=== PATIENT | male | born 1980 | race Caucasian/White ===

== ENCOUNTER 2016-09-27 10:13 | Emergency (ER) | payer MEDICAID ==
[2016-09-27] MEDS ORDERED: NS 1,000 ML IV ONE (10:35)
[2016-09-27 10:43] VITALS: RESP 18; TEMP 98
[2016-09-27] MEDS ORDERED: ONDANSETRON 4 MG/2 ML VIAL IVP ONE (10:46)
--- NOTE | 2016-09-27 10:53 | UCPHY ---
H & P Patient Type: Established Chief Complaint Nursing Narrative: c/o ULQ abd pain with N/V since late last pm - Time Seen by Provider: 09/27/16 10:26 HPI/ROS: This patient presents with a chief complaint of epigastric pain, nausea, vomiting and 3 episodes of diarrhea which began approximately 4 hours prior to my evaluation. The patient was feeling fine when he went to bed last night and then the pain awakened him at approximately 7:00 a.m. and was associated with severe nausea followed by approximately 10 episodes of vomiting. Either the diarrhea or vomit contained any blood. The pain in his abdomen does not radiate to his back any denies any relationship of the pain to movement, position, breathing or swallowing. He denies any URI symptoms and denies any urinary tract symptoms. The patient has been seen multiple times in the past for similar symptoms but since he had his gallbladder removed in June 2016 this problem as recurred only once which was in July of 2016. REVIEW OF SYSTEMS: Constitutional: No fever, chills, lightheadedness Eyes: No complaints ENT: No sore throat, congestion or ear pain Respiratory: No cough, no shortness of breath, Cardiac: No chest pain Gastrointestinal: See above Genitourinary: Denies symptoms Musculoskeletal: No myalgias Skin: No rash Neurological: No headache Source: Patient, RN notes reviewed, Old records Exam Limitations: No limitations - Personal History Current Tetanus Diphtheria and Acellular Pertussis (TDAP): Yes Tetanus Vaccine Date: within 10 years - Medical/Surgical History Hx Asthma: No Hx Chronic Respiratory Disease: No Hx Diabetes: No Hx Cardiac Disease: No Hx Renal Disease: No Hx Cirrhosis: No Hx Alcoholism: No Hx HIV/AIDS: No Hx Splenectomy or Spleen Trauma: No Other PMH: PTSD, schizoaffective, personality disorder - Family History Significant Family History: No pertinent family hx - Social History Smoking Status: Current every day smoker - Physical Exam Exam: GENERAL: Well-appearing, well-nourished and in no acute distress. HEAD: Atraumatic, normocephalic. EYES: Pupils equal round and reactive to light, extraocular movements intact, sclera anicteric, conjunctiva are normal. ENT: nares patent, oropharynx clear without exudates. Moist mucous membranes. NECK: Normal range of motion, supple without lymphadenopathy or JVD. LUNGS: Breath sounds clear to auscultation bilaterally and equal. No wheezes rales or rhonchi. HEART: Regular rate and rhythm without murmurs, rubs or gallops. ABDOMEN: Soft, mild epigastric tenderness, normoactive bowel sounds. No guarding, no rebound. No masses appreciated. EXTREMITIES: Normal range of motion, NEUROLOGICAL: Cranial nerves II through XII grossly intact. Normal speech, normal gait. PSYCH: Normal mood, normal affect. SKIN: Warm, dry, normal turgor, no visible rashes or lesions. Back: No CVA or other tenderness Constitutional: Initial Vital Signs Temperature (C) 36.6 C 09/27/16 10:27 Heart Rate 75 09/27/16 10:27 Respiratory Rate 18 09/27/16 10:27 Blood Pressure 132/79 H 09/27/16 10:27 O2 Sat (%) 96 09/27/16 10:27 O2 Delivery Mode Nasal Cannula O2 (L/minute) 2 Allergies/Adverse Reactions: lithium Allergy (Intermediate, Verified 08/06/16 12:44) Other-Enter Comments Home Medications: Medication Instructions Recorded DIAZEPAM 08/06/16 Latuda 08/06/16 Ondansetron Odt [Zofran Odt] 4 - 8 mg PO Q4PRN PRN #4 tab 08/06/16 PARoxetine CR 08/06/16 Prazosin HCl 08/06/16 Seroquel 08/06/16 Wellbutrin Sr 08/06/16 Hydrocodone/APAP 5/325 [[place] 5 mg PO Q4-6PRN PRN #10 tab 09/27/16 5/325 (*)] Ondansetron Odt [Zofran Odt] 4 mg PO Q4PRN PRN #4 tab 09/27/16 Medical Decision Making ED Course/Re-evaluation: An IV was started and the patient was hydrated with normal saline. He was given 4 mg of Zofran and 4 mg of morphine intravenously. On discharge the patient about denied abdominal pain or nausea. He had no episodes of vomiting or diarrhea while in the department. Differential Diagnosis: I find nothing that would suggest that this patient's symptoms are related to a serious medical problem in spite of the elevated white count. - Data Points Laboratory Results: Laboratory Results 09/27/16 10:37 09/27/16 10:37 09/27/16 10:37 WBC 16.69 H 10^3/uL (3.80-9.50) RBC 5.33 10^6/uL (4.40-6.38) Hgb 16.2 g/dL (13.7-17.5) Hct 48.6 % (40.0-51.0) MCV 91.2 fL (81.5-99.8) MCH 30.4 pg (27.9-34.1) MCHC 33.3 g/dL (32.4-36.7) RDW 13.5 % (11.5-15.2) Plt Count 284 10^3/uL (150-400) MPV 9.6 fL (8.7-11.7) Neut % (Auto) 86.9 H % (39.3-74.2) Lymph % (Auto) 7.9 L % (15.0-45.0) [place] % (Auto) 3.6 L % (4.5-13.0) Eos % (Auto) 0.7 % (0.6-7.6) Baso % (Auto) 0.3 % (0.3-1.7) Nucleat RBC Rel Count 0.0 % (0.0-0.2) Absolute Neuts (auto) 14.51 H 10^3/uL (1.70-6.50) Absolute Lymphs (auto) 1.32 10^3/uL (1.00-3.00) Absolute Monos (auto) 0.60 10^3/uL (0.30-0.80) Absolute Eos (auto) 0.11 10^3/uL (0.03-0.40) Absolute Basos (auto) 0.05 10^3/uL (0.02-0.10) Absolute Nucleated RBC 0.00 10^3/uL (0-0.01) Immature Gran % 0.6 % (0.0-1.1) Immature Gran # 0.10 10^3/uL (0.00-0.10) Sodium 143 mEq/L (134-144) Potassium 4.5 mEq/L (3.5-5.2) Chloride 106 mEq/L (97-110) Carbon Dioxide 24 mEq/l (22-31) Anion Gap 13 mEq/L (8-16) BUN 15 mg/dL (7-23) Creatinine 0.9 mg/dL (0.7-1.3) Estimated GFR > 60 Glucose 100 mg/dL (70-100) Calcium 9.4 mg/dL (8.5-10.4) Total Bilirubin 0.5 mg/dL (0.1-1.4) AST 20 IU/L (17-59) ALT 31 IU/L (21-72) Alkaline Phosphatase 70 IU/L (38-126) Total Protein 7.0 g/dL (6.3-8.2) Albumin 4.2 g/dL (3.5-5.0) Lipase 79.0 IU/L (23-300) Medications Given: Discontinued Medications Morphine Sulfate (Morphine) 4 mg IVP EDNOW ONE Stop: 09/27/16 10:48 Last Admin: 09/27/16 11:12 Dose: 4 mg Ondansetron HCl (Zofran) 4 mg IVP EDNOW ONE Stop: 09/27/16 10:47 Last Admin: 09/27/16 11:12 Dose: 4 mg Departure - Departure Disposition: Home, Routine, Self-Care Clinical Impression: Gastroenteritis Condition: Good Instructions: Dehydration (ED), Gastroenteritis (ED) Additional Instructions: If symptoms recur you should return. Keep yourself well hydrated and do not eat any solids for the next 6-8 hours. If your symptoms have not completely resolved by tomorrow morning you should return. Limit your activities for the remainder of the day. Prescriptions: Hydrocodone/APAP 5/325 [[place] 5/325 (*)] 5 mg PO Q4-6PRN PRN #10 tab PRN Reason: pain Ondansetron Odt [Zofran Odt] 4 mg PO Q4PRN PRN #4 tab PRN Reason: For Nausea & Vomiting - PQRS PQRS Measurement: Not applicable
[2016-09-27 10:56] LABS: % IMMATURE GRANULYOCYTES 0.6 % (0.0-1.1); ADD DIFF? NO; ADD MORPH? NO; ADD SCAN? NO; ATYPICAL LYMPHOCYTE FLAG 0 (0-99); FRAGMENT RBC FLAG 0 (0-99); HEMATOCRIT 48.6 % (40.0-51.0); HEMOGLOBIN 16.2 g/dL (13.7-17.5); LEFT SHIFT FLG 0 (0-99); LIPEMIA HEMOLYSIS FLAG 80 (0-99); MEAN CELL HEMOGLOBIN 30.4 pg (27.9-34.1); MEAN CELL HEMOGLOBIN CONCENTR. 33.3 g/dL (32.4-36.7); MEAN CELL VOLUME 91.2 fL (81.5-99.8); MEAN PLATELET VOLUME 9.6 fL (8.7-11.7); PLATELET CLUMPS FLAG 30 (0-99); PLATELET COUNT 284 10^3/uL (150-400); RED BLOOD CELL COUNT 5.33 10^6/uL (4.40-6.38); RED CELL DISTRIBUTION WIDTH 13.5 % (11.5-15.2)
[2016-09-27 11:03] LABS: ALANINE AMINOTRANSFERASE 31 IU/L (21-72); ALBUMIN 4.2 g/dL (3.5-5.0); ALKALINE PHOSPHATASE 70 IU/L (38-126); ANION GAP 13 mEq/L (8-16); ASPARTATE AMINOTRANSFERASE 20 IU/L (17-59); BILIRUBIN,TOTAL 0.5 mg/dL (0.1-1.4); CALCIUM 9.4 mg/dL (8.5-10.4); CARBON DIOXIDE 24 mEq/l (22-31); CHLORIDE 106 mEq/L (97-110); CREATININE 0.9 mg/dL (0.7-1.3); GLOMERULAR FILTRATION RATE > 60; GLUCOSE 100 mg/dL (70-100); POTASSIUM 4.5 mEq/L (3.5-5.2); SODIUM 143 mEq/L (134-144)
[2016-09-27 12:29] VITALS: BP 124/62; PULSE 78; O2SAT 95
== END 2016-09-27 12:25 | disposition home or self-care (01) ==
LOC: CED 10:13
DX: K52.9 Noninfective gastroenteritis and colitis, unspecified (principal); E86.0 Dehydration; Z72.0 Tobacco use; F25.9 Schizoaffective disorder, unspecified; F43.10 Post-traumatic stress disorder, unspecified
CPT/HCPCS: 80053-PO; 83690-PO; 85025-PO; 96361-PO; 96374-PO; 96375-PO; 99215-PO; G0463-PO; J2405

== ENCOUNTER 2016-10-31 16:07 | Emergency (ER) | payer MEDICAID ==
[2016-10-31] MEDS ORDERED: ONDANSETRON 4 MG/2 ML VIAL IVP ONE (17:13)
[2016-10-31] MEDS ORDERED: NS 1,000 ML IV ONE ×2 (17:13→18:17)
[2016-10-31] MEDS ORDERED: FAMOTIDINE 20 MG/NACL 50 ML IV ONE (17:15)
[2016-10-31 17:18] LABS: % IMMATURE GRANULYOCYTES 0.4 % (0.0-1.1); ABSOLUTE IMMATURE GRANULOCYTES 0.05 10^3/uL (0.00-0.10); ADD DIFF? NO; ADD MORPH? NO; ADD SCAN? NO; ATYPICAL LYMPHOCYTE FLAG 0 (0-99); FRAGMENT RBC FLAG 0 (0-99); HEMATOCRIT 43.2 % (40.0-51.0); HEMOGLOBIN 14.5 g/dL (13.7-17.5); LEFT SHIFT FLG 0 (0-99); LIPEMIA HEMOLYSIS FLAG 80 (0-99); MEAN CELL HEMOGLOBIN 30.6 pg (27.9-34.1); MEAN CELL HEMOGLOBIN CONCENTR. 33.6 g/dL (32.4-36.7); MEAN CELL VOLUME 91.1 fL (81.5-99.8); MEAN PLATELET VOLUME 10.2 fL (8.7-11.7); PLATELET CLUMPS FLAG 0 (0-99); PLATELET COUNT 240 10^3/uL (150-400); RED BLOOD CELL COUNT 4.74 10^6/uL (4.40-6.38); RED CELL DISTRIBUTION WIDTH 13.8 % (11.5-15.2)
[2016-10-31 17:25] LABS: ALANINE AMINOTRANSFERASE 32 IU/L (21-72); ALBUMIN 3.8 g/dL (3.5-5.0); ALKALINE PHOSPHATASE 52 IU/L (38-126); ANION GAP 10 mEq/L (8-16); ASPARTATE AMINOTRANSFERASE 22 IU/L (17-59); BILIRUBIN,TOTAL 0.5 mg/dL (0.1-1.4); CALCIUM 8.9 mg/dL (8.5-10.4); CARBON DIOXIDE 24 mEq/l (22-31); CHLORIDE 107 mEq/L (97-110); GLOMERULAR FILTRATION RATE > 60; GLUCOSE 86 mg/dL (70-100); POTASSIUM 3.8 mEq/L (3.5-5.2); SODIUM 141 mEq/L (134-144); TOTAL PROTEIN 6.6 g/dL (6.3-8.2)
[2016-10-31] MEDS ORDERED: KETOROLAC 30 MG/1 ML SDV IVP ONE (18:17)
[2016-10-31] MEDS ORDERED: HYDROCOD/APAP 5/325 PREPACK#6 BTL TAKEHOME ONE (19:21)
[2016-10-31] MEDS ORDERED: ONDANSETRON 4MG PREPACK#2 BTL TAKEHOME ONE (19:21)
--- NOTE | 2016-10-31 19:22 | UCPHY ---
H & P Patient Type: Established Chief Complaint Nursing Narrative: sharp epigsastric pain since 3pm. Vomitting blood. Lethargic, disoriented, diaphoretic. Time Seen by Provider: 10/31/16 16:45 HPI/ROS: 36-year-old male presents complaining of nausea vomiting and left upper quadrant pain that began at about 3 this afternoon. He has had several prior visits with similar presentations. He had his gallbladder out in June 2016. Denies any unusual food intake or unusual exposures today He states he only uses cannabis approximately once a week Review of systems General no fever no chills no weakness HEENT no eye pain no eye discharge. No eye redness, no sore throat Respiratory no cough, no shortness of breath Cardiac no chest pain, no peripheral edema GI positive abdominal pain, no diarrhea, no constipation, with positive nausea positive vomiting no flank pain, no hematuria, no dysuria Musculoskeletal no myalgias, no joint pain Heme no easy bruising, no easy bleeding Endo no polyuria, no polydipsia Skin no rashes, no pruritus Neuro no syncope, no dizziness, no headaches Psych is no suicidal ideation, no homicidal ideation Source: Patient Exam Limitations: No limitations - Personal History Current Tetanus/Diphtheria Vaccine: Yes Tetanus Vaccine Date: within 10 years - Medical/Surgical History Hx Asthma: No Hx Chronic Respiratory Disease: No Hx Diabetes: No Hx Cardiac Disease: No Hx Renal Disease: No Hx Cirrhosis: No Hx Alcoholism: No Hx HIV/AIDS: No Hx Splenectomy or Spleen Trauma: No Other PMH: gall bladder removed in May. 4 episodes of abdominal pain since then. - Family History Significant Family History: No pertinent family hx - Social History Smoking Status: Current every day smoker Alcohol Use: Occasionally Drug Use: Marijuana - Physical Exam Exam: 36-year-old male alert and oriented moderate distress secondary to upper abdominal pain with nausea, however nontoxic appearance, afebrile HEENT atraumatic normocephalic, extraocular muscles intact, anicteric Oropharynx negative for erythema negative exudate, tolerating her own secretions Neck supple no meningismus Lungs clear to auscultation bilaterally Heart regular rate and rhythm without murmur rub or gallop Abdomen nondistended normoactive bowel sounds soft, positive tenderness to palpation epigastric left upper quadrant, no rebound no guarding no right lower quadrant tenderness no McBurney's point tenderness Back no CVA tenderness, no step-offs, no spinal tenderness Extremities no cyanosis clubbing or edema Neuro alert and oriented, no focal deficits Constitutional: Initial Vital Signs Temperature (C) 36.8 C 10/31/16 16:12 Heart Rate 79 10/31/16 16:12 Respiratory Rate 20 10/31/16 16:12 Blood Pressure 173/79 H 10/31/16 16:12 O2 Sat (%) 97 10/31/16 16:12 O2 Delivery Mode Room Air Allergies/Adverse Reactions: lithium Allergy (Intermediate, Verified 08/06/16 12:44) Other-Enter Comments Home Medications: Medication Instructions Recorded DIAZEPAM 08/06/16 Latuda 08/06/16 Ondansetron Odt [Zofran Odt] 4 - 8 mg PO Q4PRN PRN #4 tab 08/06/16 PARoxetine CR 08/06/16 Prazosin HCl 08/06/16 Seroquel 08/06/16 Wellbutrin Sr 08/06/16 Hydrocodone/APAP 5/325 [[place] 5 mg PO Q4-6PRN PRN #10 tab 09/27/16 5/325 (*)] Ondansetron Odt [Zofran Odt] 4 mg PO Q4PRN PRN #4 tab 09/27/16 Medical Decision Making ED Course/Re-evaluation: Patient seen and evaluated for nausea vomiting abdominal pain, has had multiple prior visits for the same IV fluids started, ondansetron 4 mg IV push given morphine 4 mg IV given Labs sent Lipase within normal limits LFTs within normal limits WBC moderately elevated Differential diagnosis Pancreatitis, gastroenteritis, gastritis, appendicitis Impression Acute gastroenteritis Plan Discharge home with ondansetron and very small supply of pain medicine - Data Points Laboratory Results: Laboratory Results 10/31/16 16:53 10/31/16 16:53 10/31/16 16:53 WBC 14.16 H 10^3/uL (3.80-9.50) RBC 4.74 10^6/uL (4.40-6.38) Hgb 14.5 g/dL (13.7-17.5) Hct 43.2 % (40.0-51.0) MCV 91.1 fL (81.5-99.8) MCH 30.6 pg (27.9-34.1) MCHC 33.6 g/dL (32.4-36.7) RDW 13.8 % (11.5-15.2) Plt Count 240 10^3/uL (150-400) MPV 10.2 fL (8.7-11.7) Neut % (Auto) 61.1 % (39.3-74.2) Lymph % (Auto) 28.2 % (15.0-45.0) [place] % (Auto) 7.6 % (4.5-13.0) Eos % (Auto) 2.3 % (0.6-7.6) Baso % (Auto) 0.4 % (0.3-1.7) Nucleat RBC Rel Count 0.0 % (0.0-0.2) Absolute Neuts (auto) 8.67 H 10^3/uL (1.70-6.50) Absolute Lymphs (auto) 3.99 H 10^3/uL (1.00-3.00) Absolute Monos (auto) 1.07 H 10^3/uL (0.30-0.80) Absolute Eos (auto) 0.33 10^3/uL (0.03-0.40) Absolute Basos (auto) 0.05 10^3/uL (0.02-0.10) Absolute Nucleated RBC 0.00 10^3/uL (0-0.01) Immature Gran % 0.4 % (0.0-1.1) Immature Gran # 0.05 10^3/uL (0.00-0.10) Sodium 141 mEq/L (134-144) Potassium 3.8 mEq/L (3.5-5.2) Chloride 107 mEq/L (97-110) Carbon Dioxide 24 mEq/l (22-31) Anion Gap 10 mEq/L (8-16) BUN 13 mg/dL (7-23) Creatinine 1.0 mg/dL (0.7-1.3) Estimated GFR > 60 Glucose 86 mg/dL (70-100) Calcium 8.9 mg/dL (8.5-10.4) Total Bilirubin 0.5 mg/dL (0.1-1.4) AST 22 IU/L (17-59) ALT 32 IU/L (21-72) Alkaline Phosphatase 52 IU/L (38-126) Total Protein 6.6 g/dL (6.3-8.2) Albumin 3.8 g/dL (3.5-5.0) Lipase 186.0 IU/L (23-300) Medications Given: Discontinued Medications Acetaminophen/Hydrocodone Bitart ([place] 5/325mg Prepack#6) 1 btl TAKEHOME EDNOW ONE Stop: 10/31/16 19:22 Last Admin: 10/31/16 19:40 Dose: 1 btl Sodium Chloride (Ns) 1,000 mls @ 0 mls/hr IV ONCE ONE PRN Reason: Wide Open Stop: 10/31/16 17:14 Last Admin: 10/31/16 17:49 Dose: 1,000 mls Famotidine/Sodium Chloride (Pepcid 20 Mg (Premix)) 50 mls @ 200 mls/hr IV EDNOW ONE Stop: 10/31/16 17:29 Last Admin: 10/31/16 17:48 Dose: 50 mls Sodium Chloride (Ns) 1,000 mls @ 0 mls/hr IV ONCE ONE PRN Reason: Wide Open Stop: 10/31/16 18:18 Last Admin: 10/31/16 18:25 Dose: 1,000 mls Ketorolac Tromethamine (Toradol) 30 mg IVP EDNOW ONE Stop: 10/31/16 18:18 Last Admin: 10/31/16 18:25 Dose: 30 mg Morphine Sulfate (Morphine) 4 mg IVP EDNOW ONE Stop: 10/31/16 17:15 Last Admin: 10/31/16 17:48 Dose: 4 mg Ondansetron HCl (Zofran) 4 mg IVP EDNOW ONE Stop: 10/31/16 17:14 Last Admin: 10/31/16 17:49 Dose: 4 mg Ondansetron HCl (Zofran Odt 4 Mg Prepack#2) 1 btl TAKEHOME EDNOW ONE Stop: 10/31/16 19:22 Last Admin: 10/31/16 19:22 Dose: 1 btl Departure - Departure Disposition: Home, Routine, Self-Care Clinical Impression: Gastroenteritis Condition: Good Instructions: Gastroenteritis (ED) Referrals: NONE *PRIMARY CARE P,. [Primary Care Provider] - As per Instructions - PQRS PQRS Measurement: na
[2016-10-31 19:27] VITALS: BP 145/66; PULSE 74; RESP 18; TEMP 98; O2SAT 90
== END 2016-10-31 19:23 | disposition home or self-care (01) ==
LOC: CED 16:07
DX: K52.9 Noninfective gastroenteritis and colitis, unspecified (principal); F17.200 Nicotine dependence, unspecified, uncomplicated; F12.90 Cannabis use, unspecified, uncomplicated
CPT/HCPCS: 80053-PO; 83690-PO; 85025-PO; 96361-PO; 96365-PO; 96374-PO; 96375-PO; 99215-PO; G0463-PO; J1885; J2405

== ENCOUNTER 2016-11-01 14:39 | Emergency (ER) | payer MEDICAID ==
[2016-11-01] MEDS ORDERED: ONDANSETRON 4 MG/2 ML VIAL IVP ONE (15:26)
[2016-11-01] MEDS ORDERED: NS 1,000 ML IV ONE ×2 (15:27→16:43)
[2016-11-01] MEDS ORDERED: PANTOPRAZOLE SODIUM 40 MG VIAL IVP ONE (15:32)
[2016-11-01] MEDS ORDERED: MAALOX/LIDO/HYOSC GI COCKTAIL 55 ML BOTTLE PO ONE (15:32)
[2016-11-01] MEDS ORDERED: OXYCODONE/APAP 5/325 TAB PO ONE (15:37)
--- NOTE | 2016-11-01 15:37 | UCPHY ---
H & P Patient Type: Established Chief Complaint Nursing Narrative: here again from yesterday stating pain/ nausea meds not working cont to have same complaints- states last took pain pill this am HPI/ROS: CHIEF COMPLAINT: Abdominal pain HISTORY OF PRESENT ILLNESS: several days of left upper quadrant abdominal pain with nausea and vomiting. He has been seen here yesterday for the same treated with IV medications and discharged home. He is back today as he is not improved. He has no fever or chills. No bloody stools or emesis. Does have a few episodes of diarrhea. No chest pain shortness of breath. Symptoms seem to be worse with palpation, weight-bearing on Valsalva. No alleviating factors despite Protonix, nausea medication and IV fluids yesterday. Has a long history of abdominal pain and vomiting without surgical intervention other than cholecystectomy several years ago. Has an appointment on Saturday with a GI specialist due to these ongoing symptoms. No other associated complaints or modifying factors. PREVIOUS ABDOMINAL SURGERIES/DIAGNOSES: Gastritis, nausea vomiting NPO: last night REVIEW OF SYSTEMS: Ten systems reviewed and are negative unless otherwise noted in the HPI EXAMINATION: General Appearance: Alert, no distress Head: normocephalic, atraumatic Eyes: Pupils equal and round, no conjunctival pallor or injection ENT, Mouth: Mucous membranes moist. Uvula midline. No edema erythema. Airway is patent. Neck: Normal inspection, supple, non-tender Respiratory: Lungs are clear to auscultation . No wheezing, rhonchi or crackles. Cardiovascular: Regular rate and rhythm Gastrointestinal: Abdomen is soft and tender in all 4 quadrants. No point tenderness. No tympany. No rigidity. No guarding. No Rovsing. No CVA tenderness. Nonacute abdomen. Neurological: A&O, nonfocal, Strength symmetric in all limbs. Skin: Warm and dry, no rash Extremities: Nontender, no pedal edema . Range of motion intact in all limbs Psychiatric: Flat affect. DIFFERENTIAL DIAGNOSES: Including but not limited to Cyclical vomiting, gastritis, enteritis, pancreatitis, cystitis, UTI MDM: 3:30 p.m. chronic abdominal pain with cyclical vomiting and occasional diarrhea. The abdominal exam is benign. He has no fever or chills. Vital signs are stable. He has an ongoing history of this and has an appointment on Saturday with a GI specialist. I have ordered laboratory studies and we will provide IV fluid and IV Zofran. 4:40 p.m. feeling somewhat better after the 1st L of IV fluid but we will give him an additional L. Laboratory studies are actually improved from yesterday. Abdominal exam is benign. I do not feel he warrants exposure of radiation by CT scan. He has an appointment on Saturday with a GI specialist upstairs at [facility]. Plan for 1 more L IV fluid and discharged home with 2 prescriptions for nausea. He is comfortable with this plan. I did not order any IV pain medication as he was here yesterday for that and then drove home after he informed us that he did have a ride home. I am not comfortable giving him any IV narcotics given the scenario. 5:00 p.m. vital signs were within normal limits. He continues to feel better with IV fluid. We discussed CT scan and he is comfortable with me not order 1 at this time. I do not feel that it warrants exposure to radiation. He does not know the name of the GI physician he is to see, but he sees them Saturday here with [facility] of [facility]. Discharged home stable conditions with further anti emetics. ED Precautions: Worsening pain. Fever. Bloody stools. Bloody emesis. Constipation or diarrhea. SUPERVISION: This patient was independently evaluated without the aide of supervising physician. Source: Patient Exam Limitations: No limitations - Personal History Current Tetanus Diphtheria and Acellular Pertussis (TDAP): Yes Tetanus Vaccine Date: within 10 years - Medical/Surgical History Hx Asthma: No Hx Chronic Respiratory Disease: No Hx Diabetes: No Hx Cardiac Disease: No Hx Renal Disease: No Hx Cirrhosis: No Hx Alcoholism: No Hx HIV/AIDS: No Hx Splenectomy or Spleen Trauma: No Other PMH: gall bladder removed in May. 4 episodes of abdominal pain since then. - Family History Significant Family History: No pertinent family hx - Social History Smoking Status: Current every day smoker Constitutional: Initial Vital Signs Temperature (C) 98 F 11/01/16 14:51 Heart Rate 88 11/01/16 14:51 Respiratory Rate 18 11/01/16 14:51 Blood Pressure 148/90 H 11/01/16 14:51 O2 Sat (%) 96 11/01/16 14:51 O2 Delivery Mode Room Air Allergies/Adverse Reactions: lithium Allergy (Intermediate, Verified 08/06/16 12:44) Other-Enter Comments Home Medications: Medication Instructions Recorded DIAZEPAM 08/06/16 Latuda 08/06/16 Ondansetron Odt [Zofran Odt] 4 - 8 mg PO Q4PRN PRN #4 tab 08/06/16 PARoxetine CR 08/06/16 Prazosin HCl 08/06/16 Seroquel 08/06/16 Wellbutrin Sr 08/06/16 Hydrocodone/APAP 5/325 [[place] 5 mg PO Q4-6PRN PRN #10 tab 09/27/16 5/325 (*)] Ondansetron Odt [Zofran Odt] 4 mg PO Q4PRN PRN #4 tab 09/27/16 Ondansetron Odt [Zofran Odt 4 mg 4 mg PO Q4 PRN #12 tab 11/01/16 (*)] Promethazine HCl 25 mg PO Q6-8PRN PRN #15 tablet 11/01/16 Medical Decision Making - Data Points Laboratory Results: Laboratory Results 11/01/16 16:05 11/01/16 16:05 11/01/16 16:05 WBC 12.09 H 10^3/uL (3.80-9.50) RBC 4.59 10^6/uL (4.40-6.38) Hgb 13.9 g/dL (13.7-17.5) Hct 42.2 % (40.0-51.0) MCV 91.9 fL (81.5-99.8) MCH 30.3 pg (27.9-34.1) MCHC 32.9 g/dL (32.4-36.7) RDW 14.0 % (11.5-15.2) Plt Count 227 10^3/uL (150-400) MPV 9.4 fL (8.7-11.7) Neut % (Auto) 63.7 % (39.3-74.2) Lymph % (Auto) 25.8 % (15.0-45.0) [place] % (Auto) 6.9 % (4.5-13.0) Eos % (Auto) 2.8 % (0.6-7.6) Baso % (Auto) 0.4 % (0.3-1.7) Nucleat RBC Rel Count 0.0 % (0.0-0.2) Absolute Neuts (auto) 7.70 H 10^3/uL (1.70-6.50) Absolute Lymphs (auto) 3.12 H 10^3/uL (1.00-3.00) Absolute Monos (auto) 0.83 H 10^3/uL (0.30-0.80) Absolute Eos (auto) 0.34 10^3/uL (0.03-0.40) Absolute Basos (auto) 0.05 10^3/uL (0.02-0.10) Absolute Nucleated RBC 0.00 10^3/uL (0-0.01) Immature Gran % 0.4 % (0.0-1.1) Immature Gran # 0.05 10^3/uL (0.00-0.10) Sodium 144 mEq/L (134-144) Potassium 3.8 mEq/L (3.5-5.2) Chloride 108 mEq/L (97-110) Carbon Dioxide 26 mEq/l (22-31) Anion Gap 10 mEq/L (8-16) BUN 7 mg/dL (7-23) Creatinine 1.0 mg/dL (0.7-1.3) Estimated GFR > 60 Glucose 88 mg/dL (70-100) Calcium 8.6 mg/dL (8.5-10.4) Total Bilirubin 0.5 mg/dL (0.1-1.4) Conjugated Bilirubin 0.4 mg/dL (0.0-0.5) Unconjugated Bilirubin 0.1 mg/dL (0.0-1.1) AST 22 IU/L (17-59) ALT 31 IU/L (21-72) Alkaline Phosphatase 52 IU/L (38-126) Total Protein 6.2 L g/dL (6.3-8.2) Albumin 3.6 g/dL (3.5-5.0) Lipase 90.0 IU/L (23-300) Departure - Departure Disposition: Home, Routine, Self-Care Clinical Impression: Chronic abdominal pain Cyclical vomiting with nausea Qualifiers: Vomiting Intractability: non-intractable Qualifier Code: (G43.A0) Cyclical vomiting, not intractable Gastritis Qualifiers: Gastritis type: unspecified gastritis Chronicity: acute Gastritis bleeding: without bleeding Qualifier Code: (K29.00) Acute gastritis without bleeding Condition: Good Instructions: Chronic Abdominal Pain (ED), Acute Nausea and Vomiting (ED) Additional Instructions: Follow-up with GI specialist as scheduled on Saturday. ER for worsening pain, intractable nausea or vomiting. Referrals: NONE *PRIMARY CARE P,. [Primary Care Provider] - As per Instructions Anette Estes MD [Medical Doctor] - As per Instructions Prescriptions: Promethazine HCl 25 mg PO Q6-8PRN PRN #15 tablet PRN Reason: Nausea/Vomiting, Use 1st Ondansetron Odt [Zofran Odt 4 mg (*)] 4 mg PO Q4 PRN #12 tab PRN Reason: Nausea/Vomiting, Use 1st - PQRS PQRS Measurement: Not applicable
[2016-11-01 16:10] LABS: % IMMATURE GRANULYOCYTES 0.4 % (0.0-1.1); ABSOLUTE IMMATURE GRANULOCYTES 0.05 10^3/uL (0.00-0.10); ADD DIFF? NO; ADD MORPH? NO; ADD SCAN? NO; ATYPICAL LYMPHOCYTE FLAG 0 (0-99); FRAGMENT RBC FLAG 0 (0-99); HEMATOCRIT 42.2 % (40.0-51.0); HEMOGLOBIN 13.9 g/dL (13.7-17.5); LEFT SHIFT FLG 0 (0-99); LIPEMIA HEMOLYSIS FLAG 80 (0-99); MEAN CELL HEMOGLOBIN 30.3 pg (27.9-34.1); MEAN CELL HEMOGLOBIN CONCENTR. 32.9 g/dL (32.4-36.7); MEAN CELL VOLUME 91.9 fL (81.5-99.8); MEAN PLATELET VOLUME 9.4 fL (8.7-11.7); PLATELET CLUMPS FLAG 0 (0-99); PLATELET COUNT 227 10^3/uL (150-400); RED BLOOD CELL COUNT 4.59 10^6/uL (4.40-6.38)
[2016-11-01 16:27] LABS: ALANINE AMINOTRANSFERASE 31 IU/L (21-72); ALBUMIN 3.6 g/dL (3.5-5.0); ALKALINE PHOSPHATASE 52 IU/L (38-126); ANION GAP 10 mEq/L (8-16); ASPARTATE AMINOTRANSFERASE 22 IU/L (17-59); BILIRUBIN,TOTAL 0.5 mg/dL (0.1-1.4); BILIRUBIN-CONJUGATED 0.4 mg/dL (0.0-0.5); BILIRUBIN-UNCONJUGATED 0.1 mg/dL (0.0-1.1); CALCIUM 8.6 mg/dL (8.5-10.4); CARBON DIOXIDE 26 mEq/l (22-31); CHLORIDE 108 mEq/L (97-110); GLOMERULAR FILTRATION RATE > 60; GLUCOSE 88 mg/dL (70-100); POTASSIUM 3.8 mEq/L (3.5-5.2); SODIUM 144 mEq/L (134-144); TOTAL PROTEIN 6.2 g/dL (6.3-8.2)
[2016-11-01] MEDS ORDERED: PROMETHAZINE 25 MG PREPACK #4 BTL TAKEHOME ONE (16:32)
[2016-11-01 18:03] VITALS: BP 129/74; PULSE 73; RESP 16; TEMP 97.9; O2SAT 91
== END 2016-11-01 18:20 | disposition home or self-care (01) ==
LOC: CED 14:39
DX: R10.12 Left upper quadrant pain (principal); G89.29 Other chronic pain; G43.A0 Cyclical vomiting, in migraine, not intractable; K29.00 Acute gastritis without bleeding
CPT/HCPCS: 80048-PO; 80076-PO; 83690-PO; 85025-PO; 96361-PO; 96365-PO; 96374-PO; 96375-PO; G0463-PO; J2405

== ENCOUNTER 2016-12-28 07:16 | Emergency (ER) | payer MEDICAID ==
[2016-12-28] MEDS ORDERED: KETOROLAC 30 MG/1 ML SDV IVP ONE (07:35)
[2016-12-28] MEDS ORDERED: NS 1,000 ML IV ONE ×2 (07:35→08:35)
[2016-12-28] MEDS ORDERED: ONDANSETRON 4 MG/2 ML VIAL IVP ONE (07:35)
--- NOTE | 2016-12-28 07:50 | UCPHY ---
H & P Time Seen by Provider: 12/28/16 07:21 Patient Type: New HPI/ROS: CHIEF COMPLAINT: Abdominal pain, vomiting HPI: The patient is a 36-year-old male with a history of idiopathic pancreatitis as well as cyclic vomiting syndrome. The patient has been seen in our system approximately monthly for the last 6 months. He complains of typical abdominal pain and vomiting that began last night. He denies fever, denies hematemesis. He last sought medical attention at [facility] ER 1 week ago. He denies any features of his current symptoms are different than typical. REVIEW OF SYSTEMS: Aside from elements discussed in the HPI, a comprehensive 10-point review of systems was reviewed and is negative. PMH:pancreatitis, cyclic vomiting syndrome SOCIAL HISTORY: Denies alcohol or drug abuse. FAMILY HISTORY: Reviewed, noncontributory PHYSICAL EXAM: General:Patient is alert, in no acute distress. ENT:Eyes are normal to inspection. ENT inspection normal. Neck: Normal inspection. Full range of motion. Respiratory:No respiratory distress. Breath sounds normal bilaterally. Cardiovascular: Regular rate and rhythm. Strong peripheral pulses. Normal cap refill. Abdomen:The abdomen is moderately tender in the epigastrium. There are no peritoneal signs. There are normal bowel sounds. Back: Normal to inspection. No tenderness to palpation. Skin: Normal color. No rash. Warm and dry. Extremities: Normal appearance. Full range of motion. Neuro: Oriented x3. Normal motor function. Normal sensory function. Smoking Status: Current every day smoker Constitutional: Initial Vital Signs Temperature (C) 36.7 C 12/28/16 07:30 Heart Rate 78 12/28/16 07:30 Respiratory Rate 16 12/28/16 07:30 Blood Pressure 117/79 12/28/16 07:30 O2 Sat (%) 94 12/28/16 07:30 O2 Delivery Mode Room Air Allergies/Adverse Reactions: lithium Allergy (Intermediate, Verified 12/28/16 07:36) Other-Enter Comments Home Medications: Medication Instructions Recorded DIAZEPAM 08/06/16 Latuda 08/06/16 Ondansetron Odt [Zofran Odt] 4 - 8 mg PO Q4PRN PRN #4 tab 08/06/16 PARoxetine CR 08/06/16 Prazosin HCl 08/06/16 Seroquel 08/06/16 Wellbutrin Sr 08/06/16 Hydrocodone/APAP 5/325 [[place] 5 mg PO Q4-6PRN PRN #10 tab 09/27/16 5/325 (*)] Ondansetron Odt [Zofran Odt] 4 mg PO Q4PRN PRN #4 tab 09/27/16 Ondansetron Odt [Zofran Odt 4 mg 4 mg PO Q4 PRN #12 tab 11/01/16 (*)] Promethazine HCl 25 mg PO Q6-8PRN PRN #15 tablet 11/01/16 MDM/Departure - MDM Medications Given: Discontinued Medications Sodium Chloride (Ns) 1,000 mls @ 0 mls/hr IV ONCE ONE PRN Reason: Wide Open Stop: 12/28/16 07:36 Last Admin: 12/28/16 07:35 Dose: 1,000 mls Ketorolac Tromethamine (Toradol) 30 mg IVP EDNOW ONE Stop: 12/28/16 07:36 Last Admin: 12/28/16 07:50 Dose: 30 mg Ondansetron HCl (Zofran) 4 mg IVP EDNOW ONE Stop: 12/28/16 07:36 Last Admin: 12/28/16 07:50 Dose: 4 mg ED Course/Re-evaluation: This patient presents to Urgent Care with a long history of cyclic vomiting and chronic abdominal pain. His lipase is very slightly elevated but I do not think this represents acute pancreatitis. Certainly the patient is hemodynamically stable and reasonably comfortable on exam this I do not think he requires admission at this time. I do not think further workup including CT scan is indicated given chronicity of symptoms and no change with acute presentation. Re-evaluation at 11:00 a.m. the patient states he feels slightly better and would like to go home. I did tell him at the outset that we do not treat chronic abdominal pain with narcotics. He was treated with Zofran and IV fluids. He declined Haldol. - Depart Disposition: Home, Routine, Self-Care Clinical Impression: Abdominal pain Condition: Good Instructions: Abdominal Pain (ED) Additional Instructions: Follow-up with your primary doctor within 72 hours. Return to the Emergency Department for worsening pain, fever, severe vomiting, change in character or severity of pain or other worsening of condition. Referrals: NONE *PRIMARY CARE P,. [Primary Care Provider] - As per Instructions - PQRS PQRS Measurement: 134: Depression screening and followup, PRIME MD-PHQ2 (12 years and older) Over the last 2 weeks, how often have you been bothered by any of the following problems? 1. Feeling down, depressed, or hopeless? 2. Little interest or pleasure in doing things? Patient answered no to both 1 and 2 130: Documentation of medications. Reviewed all patient medications, doses, route and frequency. 226: Do you smoke? yes 51: 18 years old and older with diagnosis of COPD, spirometry performance. Spirometry not performed; equipment not available. Patient has no history of COPD 52: 18 years old and older with COPD and symptoms of COPD or FEV1<60% predicted prescribed a B Agonist. Spirometry not performed; equipment not available.
[2016-12-28 08:17] LABS: ANION GAP 13 mEq/L (8-16); CALCIUM 9.2 mg/dL (8.5-10.4); CARBON DIOXIDE 22 mEq/l (22-31); CHLORIDE 108 mEq/L (97-110); CREATININE 0.9 mg/dL (0.7-1.3); GLOMERULAR FILTRATION RATE > 60; GLUCOSE 99 mg/dL (70-100); POTASSIUM 4.4 mEq/L (3.5-5.2); SODIUM 143 mEq/L (134-144)
[2016-12-28 11:26] VITALS: BP 121/77; PULSE 75; RESP 20; TEMP 98.4; O2SAT 93
== END 2016-12-28 11:10 | disposition home or self-care (01) ==
LOC: CED 07:16
DX: R10.9 Unspecified abdominal pain (principal); G43.A0 Cyclical vomiting, in migraine, not intractable; K85.90 Acute pancreatitis without necrosis or infection, unspecified; Z72.0 Tobacco use
CPT/HCPCS: 80048-PO; 83690-PO; 96361-PO; 96374-PO; 96375-PO; 99204-PO; G0463-PO; J1885; J2405

== ENCOUNTER 2017-06-08 09:30 | Emergency (ER) | payer MEDICAID ==
--- NOTE | 2017-06-08 09:37 | EDPHY ---
H & P Time Seen by Provider: 06/08/17 09:35 HPI/ROS: CHIEF COMPLAINT: Nausea and vomiting HISTORY OF PRESENT ILLNESS: Previous visits to our facility dated September 27, October 31, November 01, and 12/28/2016 personally reviewed. History of cyclic vomiting. Admission on 06/06/2016 for pancreatitis with lipase 1800 also reviewed, patient says that was likely due to Seroquel which he is no longer taking. Patient started having symptoms at 5:00 p.m. yesterday. Multiple episodes of nausea vomiting and epigastric pain. Symptoms severe and not helped by his oral Zofran and promethazine at home. Not associated with diarrhea or fever. Worse with oral intake. He says these are identical to previous episodes of cyclic vomiting, the last time he had to go to an emergency department at [facility] 3 weeks ago and he got better with IV Zofran and Phenergan. REVIEW OF SYSTEMS: Eye: no change in vision ENT: no sore throat Cardiac: no chest pain or syncope Pulmonary: no cough or SOB Abdomen: HPI, Musculoskeletal: no back pain Skin: no rash Neuro: no headache Constitutional: no fever : no urinary symptoms, denies symptoms including testicular pain. A comprehensive 10 point review of systems is otherwise negative aside from elements mentioned in the history of present illness. PAST MEDICAL HISTORY: Admission for pancreatitis in 2016 as above, schizoaffective disorder and PTSD. Social history: No recent alcohol General Appearance: Alert and conversant, cooperative. Eyes: No scleral icterus. ENT, Mouth: Slightly dry mucous membranes. Respiratory: Normal respiratory effort, breath sounds equal, lungs are clear to auscultation. Cardiovascular: Regular rate and rhythm. Gastrointestinal: Mild epigastric tenderness without rebound or guarding and negative Vences sign. Neurological: Alert and oriented x3. Normally conversant. Face symmetric, normal movement and sensation in all extremities. Skin: Warm and dry, no rashes. Musculoskeletal: No peripheral edema and no joint swelling. Psychiatric: Not agitated. Emergency Department course/MDM: Zofran 4mg IV and Phenergan 12.5 mg IV. Normal saline 1 L for nausea vomiting and dehydration. Labs to include lipase and LFTs. 1020: Labs reviewed, does not have evidence of pancreatitis or hepatitis today. Likely acute exacerbation of his recurrent cyclic vomiting syndrome. Plan to treat symptomatically and discharge with outpatient follow-up. I think acute surgical abdominal process is unlikely. Results discussed with patient and his mom at this time. Apparently he has had at least 1 or 2 admissions for pancreatitis at [facility] since last year, they are unaware at this time that we did not have easy access to those records. 1045: Requesting medication for pain, 15 mg IV Toradol given. 1143: Feels better, stable for discharge, abdomen soft nontender. Smoking Status: Current every day smoker Constitutional: Initial Vital Signs Temperature (C) 37.1 C 06/08/17 09:36 Heart Rate 92 06/08/17 09:36 Respiratory Rate 16 06/08/17 09:36 Blood Pressure 148/93 H 06/08/17 09:36 O2 Sat (%) 95 06/08/17 09:36 O2 Delivery Mode Room Air Allergies/Adverse Reactions: lithium Allergy (Intermediate, Verified 06/08/17 09:33) Other-Enter Comments Home Medications: Medication Instructions Recorded DIAZEPAM 08/06/16 Latuda 08/06/16 PARoxetine CR 08/06/16 Wellbutrin Sr 08/06/16 Ondansetron Odt [Zofran Odt 4 mg 4 mg PO Q4 PRN #12 tab 11/01/16 (*)] Promethazine HCl 25 mg PO Q6-8PRN PRN #15 tablet 11/01/16 AMITRIPTYLINE HCL 06/08/17 Medical Decision Making Differential Diagnosis: Differential for nausea and vomiting considered including but not limited to gastroenteritis, cyclic vomiting, food poisoning, medication side effect, bowel obstruction, pancreatitis. - Data Points Laboratory Results: Laboratory Results 06/08/17 09:55 06/08/17 09:55 06/08/17 06/08/17 09:55 09:55 WBC 11.20 10^3/uL H 10^3/uL (3.80-9.50) RBC 5.28 10^6/uL 10^6/uL (4.40-6.38) Hgb 16.0 g/dL g/dL (13.7-17.5) Hct 47.3 % % (40.0-51.0) MCV 89.6 fL fL (81.5-99.8) MCH 30.3 pg pg (27.9-34.1) MCHC 33.8 g/dL g/dL (32.4-36.7) RDW 12.6 % % (11.5-15.2) Plt Count 296 10^3/uL 10^3/uL (150-400) MPV 9.3 fL fL (8.7-11.7) Neut % (Auto) 74.2 % % (39.3-74.2) Lymph % (Auto) 17.7 % % (15.0-45.0) [place] % (Auto) 6.0 % % (4.5-13.0) Eos % (Auto) 1.3 % % (0.6-7.6) Baso % (Auto) 0.4 % % (0.3-1.7) Nucleat RBC Rel Count 0.0 % % (0.0-0.2) Absolute Neuts (auto) 8.33 10^3/uL H 10^3/uL (1.70-6.50) Absolute Lymphs (auto) 1.98 10^3/uL 10^3/uL (1.00-3.00) Absolute Monos (auto) 0.67 10^3/uL 10^3/uL (0.30-0.80) Absolute Eos (auto) 0.14 10^3/uL 10^3/uL (0.03-0.40) Absolute Basos (auto) 0.04 10^3/uL 10^3/uL (0.02-0.10) Absolute Nucleated RBC 0.00 10^3/uL 10^3/uL (0-0.01) Immature Gran % 0.4 % % (0.0-1.1) Immature Gran # 0.04 10^3/uL 10^3/uL (0.00-0.10) Sodium 140 mEq/L mEq/L (134-144) Potassium 4.4 mEq/L mEq/L (3.5-5.2) Chloride 104 mEq/L mEq/L (97-110) Carbon Dioxide 23 mEq/l mEq/l (22-31) Anion Gap 13 mEq/L mEq/L (8-16) BUN 15 mg/dL mg/dL (7-23) Creatinine 0.8 mg/dL mg/dL (0.7-1.3) Estimated GFR > 60 Glucose 95 mg/dL mg/dL (70-100) Calcium 9.5 mg/dL mg/dL (8.5-10.4) Total Bilirubin 0.7 mg/dL mg/dL (0.1-1.4) Conjugated Bilirubin 0.4 mg/dL mg/dL (0.0-0.5) Unconjugated Bilirubin 0.3 mg/dL mg/dL (0.0-1.1) AST 16 IU/L L IU/L (17-59) ALT 28 IU/L IU/L (21-72) Alkaline Phosphatase 63 IU/L IU/L (38-126) Total Protein 7.3 g/dL g/dL (6.3-8.2) Albumin 4.7 g/dL g/dL (3.5-5.0) Lipase 89 IU/L IU/L (23-300) Medications Given: Discontinued Medications Sodium Chloride (Ns) 1,000 mls @ 0 mls/hr IV EDNOW ONE; Wide Open PRN Reason: Protocol Stop: 06/08/17 09:45 Last Admin: 06/08/17 10:03 Dose: 1,000 mls Sodium Chloride (Ns) 1,000 mls @ 0 mls/hr IV EDNOW ONE; Wide Open PRN Reason: Protocol Stop: 06/08/17 10:17 Last Admin: 06/08/17 10:57 Dose: 1,000 mls Ketorolac Tromethamine (Toradol) 15 mg IVP EDNOW ONE Stop: 06/08/17 10:53 Last Admin: 06/08/17 10:57 Dose: 15 mg Ondansetron HCl (Zofran) 4 mg IVP EDNOW ONE Stop: 06/08/17 09:45 Last Admin: 06/08/17 10:04 Dose: 4 mg Promethazine HCl (Phenergan) 12.5 mg IVP EDNOW ONE Stop: 06/08/17 09:46 Last Admin: 06/08/17 10:06 Dose: 12.5 mg Departure - Departure Disposition: Home, Routine, Self-Care Clinical Impression: Cyclic vomiting syndrome Qualifiers: Vomiting Intractability: non-intractable Nausea presence: with nausea Qualified Code(s): G43.A0 - Cyclical vomiting, not intractable Condition: Good Instructions: Acute Nausea and Vomiting (ED) Additional Instructions: You did not have evidence of pancreatitis on your labs today. Lipase 89 ( normal less than 300). Please follow-up with your primary care doctor or geospatial scientist within the next week. Referrals: Kanchan Davila [Other] - As per Instructions (your doctor at [facility]) Sergio Flaherty MD [Medical Doctor] - As per Instructions
[2017-06-08 09:41] VITALS: RESP 16; TEMP 98.8; O2SAT 95
[2017-06-08] MEDS ORDERED: ONDANSETRON 4 MG/2 ML VIAL IVP ONE (09:44)
[2017-06-08] MEDS ORDERED: NS 1,000 ML IV ONE ×2 (09:44→10:16)
[2017-06-08] MEDS ORDERED: PROMETHAZINE HCL 25 MG/ML INJ IVP ONE (09:45)
[2017-06-08 09:59] LABS: % IMMATURE GRANULYOCYTES 0.4 % (0.0-1.1); ABSOLUTE IMMATURE GRANULOCYTES 0.04 10^3/uL (0.00-0.10); ADD DIFF? NO; ADD MORPH? NO; ADD SCAN? NO; ATYPICAL LYMPHOCYTE FLAG 0 (0-99); FRAGMENT RBC FLAG 0 (0-99); HEMATOCRIT 47.3 % (40.0-51.0); LEFT SHIFT FLG 0 (0-99); LIPEMIA HEMOLYSIS FLAG 90 (0-99); MEAN CELL HEMOGLOBIN 30.3 pg (27.9-34.1); MEAN CELL HEMOGLOBIN CONCENTR. 33.8 g/dL (32.4-36.7); MEAN CELL VOLUME 89.6 fL (81.5-99.8); MEAN PLATELET VOLUME 9.3 fL (8.7-11.7); PLATELET CLUMPS FLAG 10 (0-99); PLATELET COUNT 296 10^3/uL (150-400); RED BLOOD CELL COUNT 5.28 10^6/uL (4.40-6.38); RED CELL DISTRIBUTION WIDTH 12.6 % (11.5-15.2)
[2017-06-08 10:14] LABS: ALANINE AMINOTRANSFERASE 28 IU/L (21-72); ALBUMIN 4.7 g/dL (3.5-5.0); ALKALINE PHOSPHATASE 63 IU/L (38-126); ANION GAP 13 mEq/L (8-16); ASPARTATE AMINOTRANSFERASE 16 IU/L (17-59); BILIRUBIN,TOTAL 0.7 mg/dL (0.1-1.4); BILIRUBIN-CONJUGATED 0.4 mg/dL (0.0-0.5); BILIRUBIN-UNCONJUGATED 0.3 mg/dL (0.0-1.1); CALCIUM 9.5 mg/dL (8.5-10.4); CARBON DIOXIDE 23 mEq/l (22-31); CHLORIDE 104 mEq/L (97-110); CREATININE 0.8 mg/dL (0.7-1.3); GLOMERULAR FILTRATION RATE > 60; GLUCOSE 95 mg/dL (70-100); POTASSIUM 4.4 mEq/L (3.5-5.2); SODIUM 140 mEq/L (134-144); TOTAL PROTEIN 7.3 g/dL (6.3-8.2)
[2017-06-08] MEDS ORDERED: KETOROLAC 15 MG/1 ML SDV IVP ONE (10:52)
[2017-06-08 11:47] VITALS: BP 142/89; PULSE 85
== END 2017-06-08 11:46 | disposition home or self-care (01) ==
LOC: CED 09:30
DX: G43.A0 Cyclical vomiting, in migraine, not intractable (principal); E86.9 Volume depletion, unspecified; F17.200 Nicotine dependence, unspecified, uncomplicated
CPT/HCPCS: 80048-PO; 80076-PO; 83690-PO; 85025-PO; 96374; J1885; J2405; J2550

== ENCOUNTER 2018-04-18 12:19 | Emergency (ER) | payer MEDICAID ==
[2018-04-18 12:49] VITALS: BP 157/99
[2018-04-18] MEDS ORDERED: IBUPROFEN 600 MG TAB PO ONE (13:13)
--- NOTE | 2018-04-18 13:13 | EDPHY ---
H & P Time Seen by Provider: 04/18/18 12:29 HPI/ROS: CHIEF COMPLAINT: Left ear pain HISTORY OF PRESENT ILLNESS: Patient states his left ear and jaw region has been painful since Saturday. He states it feels like it is"hard to close"his jaw. He denies fevers. He has had no upper respiratory infectious symptoms, specifically no congestion, sore throat, cough. Right ear is unaffected. He denies any trauma to the area. He has no specific toothache. REVIEW OF SYSTEMS: Negative except per HPI. General Appearance: Alert, no distress. Eyes: Pupils equal and round no icterus Respiratory: No respiratory distress HEENT: Right ear normal, left ear with some mild tenderness to palpation around the TMJ. Normal tympanic membrane. No erythema, swelling. Oropharynx clear. Neurological: Awake, alert, no focal deficits. Skin: Warm and dry, no rashes. Musculoskeletal: Neck is supple nontender. Extremities are symmetrical, full range of motion, no edema. Psychiatric: Patient is oriented X 3, there is no agitation. Medical/surgical history: History of schizoaffective disorder, pancreatitis, PTSD. Surgeries include cholecystectomy. Social history: Denies drugs. Smoking Status: Current every day smoker Constitutional: Initial Vital Signs Temperature (C) 37.1 C 04/18/18 12:48 Heart Rate 84 04/18/18 12:48 Respiratory Rate 18 04/18/18 12:48 Blood Pressure 157/99 H 04/18/18 12:48 O2 Sat (%) 92 04/18/18 12:48 O2 Delivery Mode Room Air Allergies/Adverse Reactions: lithium Allergy (Intermediate, Verified 04/18/18 12:47) Other-Enter Comments Home Medications: Medication Instructions Recorded Latuda 08/06/16 PARoxetine CR 08/06/16 Wellbutrin Sr 08/06/16 Promethazine HCl 25 mg PO Q6-8PRN PRN #15 tablet 11/01/16 Medical Decision Making Differential Diagnosis: Differential diagnosis includes but is not limited to otitis media, otitis externa, mastoiditis, TMJ dysfunction, dental infection. After evaluation normal ear exam with very low suspicion for mastoiditis or other significant infectious process. Suspicious for dental source and patient states has not seen a dentist for over 10 years. Discussed symptomatic care and importance of dental follow-up. Stable for discharge. - Data Points Medications Given: Discontinued Medications Ibuprofen (Motrin) 600 mg PO EDNOW ONE Stop: 04/18/18 13:14 Last Admin: 04/18/18 13:17 Dose: 600 mg Departure - Departure Disposition: Home, Routine, Self-Care Clinical Impression: Otalgia of left ear Condition: Good Instructions: Earache (ED) Additional Instructions: Try decongestants as discussed. Ibuprofen and Tylenol for pain. You should probably make an appointment and see a dentist as well. Return to the emergency department if you develops high fever, facial swelling or other concerning new symptoms. Referrals: NONE *PRIMARY CARE P,. [Primary Care Provider] - As per Instructions
== END 2018-04-18 13:18 | disposition home or self-care (01) ==
LOC: CED 12:19
DX: H92.02 Otalgia, left ear (principal); F17.200 Nicotine dependence, unspecified, uncomplicated